=== PATIENT | male | born 1940 | race Caucasian/White ===

== ENCOUNTER → 2016-11-01 | Outpatient (CLI) | payer MEDICARE, BC ==
[~2016-11-01] MED LIST: ASCORBIC ACID500 MG PO; ASPIRIN EC81 MG PO; COLACE100 MG PO; EFFEXOR XR75 MG PO; FEROSUL325 MG PO; FISH OIL 1,0001 EACH PO; LIPITOR40 MG PO; MIRALAX17 GM PO; NORCO 5-325 TA1 EACH PO; PERCOCET 5-3251 EACH PO; PRILOSEC20 MG PO; PROTONIX40 MG PO; TOPROL XL25 MG PO; VALIUM5 MG PO; VYTORIN 10-401 EACH PO; ZANTAC 7575 MG PO; ZETIA10 MG PO; ZOCOR40 MG PO
== END | disposition disaster alternative care site (69) ==
LOC: GRAD 10:20
DX: Z48.89 Encounter for other specified surgical aftercare (principal); M43.16 Spondylolisthesis, lumbar region; M48.02 Spinal stenosis, cervical region; M25.78 Osteophyte, vertebrae; M43.14 Spondylolisthesis, thoracic region; M41.84 Other forms of scoliosis, thoracic region